=== PATIENT | female | born 1955 | race Asian ===

== ENCOUNTER → 2017-01-11 | Day surgery (SDC) | payer BC ==
[~2017-01-11] MED LIST: ACETAMINOPHEN325 MG PO; LISINOPRIL10 MG PO; MONTELUKAST SOD10 MG PO; ULTRAM PO
--- NOTE | ~2017-01-11 | OR ---
Unit #: [id number] #: [id number] Patient: MARVIN CAMEJO [id number] [address] [place], [place] [address] [id number] O MR#: [id number] NAME: MARVIN CAMEJO ROOM: Date of Procedure: 01/11/2017 Admission Date: 01/11/2017 Surgeon: Hayes Lovett M.D. : 1955 Attending Physician: Hayes Lovett M.D. Primary Care Physician: France Camejo M.D. OPERATIVE REPORT PREOPERATIVE DIAGNOSIS Colorectal cancer screening in an average-risk patient. PROCEDURE PERFORMED Colonoscopy up to cecum and terminal ileum with excellent preparation and good visualization. POSTOPERATIVE DIAGNOSES The patient has mild sigmoid and descending colon diverticulosis. Otherwise, examination was normal up to cecum and terminal ileum. The quality of the prep was excellent. No polyps were present or seen. RECOMMENDATIONS Repeat colonoscopy in 10 years. SEDATION USED MAC. DESCRIPTION OF PROCEDURE Following detailed explanation of the potential risks and complications of a colonoscopy, namely perforation, bleeding, and complication related to sedation, the patient was brought to GI lab and laid in the left lateral decubitus position. A digital rectal examination was performed, which was normal. Lubricated tip of the Olympus video colonoscope was inserted through the anus and advanced under direct vision. The scope was advanced past rectosigmoid into descending colon. Scant small diverticula were seen in this area. The scope tip was then navigated all the way up to cecum with visualization of the ileocecal valve and the appendiceal orifice. Preparation was excellent with good visualization and photodocumentation was obtained. Last several inches of the terminal ileum were also visualized after intubation of the ileocecal valve and appeared normal. Successive segments of the colonic mucosa were examined upon withdrawal and appeared unremarkable, there being no polyps, mass lesions, or AVMs. Other than the scant diverticula, no other abnormalities were found. The patient did not have any hemorrhoids at the anal verge. The scope was then withdrawn and the patient returned to the recovery area. She tolerated the procedure without any postprocedure complications. Dictated by... Hayes Lovett M.D. Unit #: [id number] #: [id number] Patient: CAMEJOMARVIN DAVILA TD: 01/11/2017 12:17 JOB #: [id number] OPERATIVE REPORT X Hayes Lovett MD PROCEDURE OPERATIVE NOTE
== END | disposition home or self-care (01) ==
LOC: COPS 08:56
PROVIDERS: Internal Medicine Gastroenterology
PROC: 0DJD8ZZ Inspection of Lower Intestinal Tract, Via Natural or Artificial Opening Endoscopic (ICD-10-PCS; principal; 2017-01-11 10:00)
DX: Z12.11 Encounter for screening for malignant neoplasm of colon (principal); K57.30 Diverticulosis of large intestine without perforation or abscess without bleeding; I10 Essential (primary) hypertension; M19.90 Unspecified osteoarthritis, unspecified site; Z79.899 Other long term (current) drug therapy

== ENCOUNTER 2017-05-05 18:26 | Observation (INO) | payer OTHER ==
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
--- NOTE | ~2017-05-05 | EKG ---
PATIENT: MARVIN VALDEZ UNIT #: [id number] Ventricular Rate: 63 BPM Atrial Rate: 63 BPM P-R Interval: 148 ms QRS Duration: 78 ms Q-T Interval: 410 ms QTC Calculation(Bezet): 419 ms P Adin: 74 degrees Calculated R Adin: 45 degrees Calculated T Adin: 48 degrees Diagnosis Line: Normal sinus rhythm Diagnosis Line: Possible Left atrial enlargement Diagnosis Line: Left ventricular hypertrophy Diagnosis Line: Abnormal ECG Diagnosis Line: No previous ECGs available Diagnosis Line: Confirmed by RAFA DE LA GARZA MD ([id number]) on Diagnosis Line: 05/07/2017 7:56:53 AM INTERPRETING MD: FREDERIC BURROUGHS
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
--- NOTE | ~2017-05-05 | HM ---
Unit #: [id number] #: [id number] Patient: MARVIN VALDEZ [id number] [address] [place], [place] [address] [id number] I MR#: [id number] NAME: MARVIN VALDEZ : 1955 SEX: F STUDY DATE/TIME: 05/06/2017 UNIT: [facility] ROOM: 463 STUDY DESCRIPTION: Attending Physician: Clarissa Carpenter M.D. Primary Care Physician: France Valdez M.D. CARDIOLOGY REPORT EXAM Holter monitor. DATE APPLIED 05/06/2017 DATE SCANNED 05/10/[address] Hamm READ BY Artie Millard M.D. INDICATION Near syncope. SUMMARY The patient was monitored for 23 hours 51 minutes. A total of 102,119 QRS complexes were analyzed. The rhythm was sinus. Average heart rate was 73 beats per minute, minimum heart rate was 54 beats per minute at 1:09 p.m., and maximum heart rate 122 beats per minute at approximately 7 a.m. There were no pauses. SUPRAVENTRICULAR ECTOPY: There were 141 isolated beats with one 3-beat run at 100 beats per minute at approximately 9:30 p.m. VENTRICULAR ECTOPY: There were 78 isolated beats. No VT. SYMPTOMS: None. PATIENT ACTIVATED EVENTS: None. IMPRESSION Normal Holter monitor with no supraventricular tachycardia, ventricular tachycardia, or pauses to account for syncope. Dictated by... Gen Woodruff/aixa Unit #: [id number] #: [id number] Patient: MARVIN VALDEZ TD: 05/12/2017 20:29 JOB #: [id number] CARDIOLOGY REPORT Page 1 of 1 X Artie Millard MD HOLTER MONITOR REPORT
--- NOTE | ~2017-05-05 | HP ---
Unit #: [id number] #: [id number] Patient: MARVIN CAMEJO [id number] [address] [address] [id number] I MR#: [id number] NAME: MARVIN CAMEJO ROOM: 823[address] Age: 61 Sex: F Admission Date: 05/06/2017 : 1955 Attending Physician: Cassidy Sharma M.D. Primary Care Physician: France Camejo M.D. HISTORY AND PHYSICAL ADDENDUM Patient is non-orthostatic. Dictated by Cassidy Sharma M.D. AML/psc TD: 05/06/2017 01:56 JOB #: [id number] HISTORY AND PHYSICAL Page 1 of 1 X Cassidy Sharma MD HISTORY AND PHYSICAL
[~2017-05-05 18:26] MED LIST changes: -ACETAMINOPHEN325 MG PO; -ULTRAM PO
[2017-05-05 19:57] LABS: BASOPHIL% 0.2 % (0-2.5); EOSINOPHIL# 0.1 X10e3 (0-0.7); EOSINOPHIL% 0.9 % (0.0-7.0); HEMATOCRIT 37.5 % (35.0-45.0); HEMOGLOBIN 12.1 gm/dL (12.0-16.0); LYMPHOCYTE# 1.1 X10e3 (1.0-3.5); LYMPHOCYTE% 6.8 % (17.0-45.0); MEAN CELL VOLUME 86.7 FL (83-96); MEAN CORPUSCULAR HGB CONC 32.3 g/dL (30-36); MEAN PLATELET VOLUME 8.6 FL (6.5-11.5); MONOCYTE# 0.6 X10e3 (0-1.0); MONOCYTE% 3.9 % (3.0-12.0); NEUTROPHIL# 13.8 X10e3 (1.5-7.1); NEUTROPHIL% 88.2 % (40-75); PLATELET COUNT 265 X10e3 (140-420); RED BLOOD COUNT 4.33 X10e (3.90-5.30); RED CELL DISTRIBUTION WIDTH 13.5 % (11.0-15.5); WHITE BLOOD COUNT 15.6 X10e3 (4.0-10.5)
[2017-05-05 19:58] LABS: DIFF IND YES
[2017-05-05 20:05] LABS: INR 0.9; PARTIAL THROMBOPLASTIN TIME 23.1 SECONDS (23.5-31.3); PROTHROMBIN TIME (PATIENT) 10.3 SECONDS (10.0-11.7)
[2017-05-05 20:13] LABS: ALBUMIN SERUM 4.5 g/dL (3.5-5.0); BILIRUBIN, DIRECT 0.1 mg/dL (0.0-0.2); BILIRUBIN,INDIRECT 0.9 mg/dL (0.0-0.9); CREATININE SERUM 0.5 mg/dL (0.6-1.4); GLOM FILT RATE Estimated 105.2 mL/min (>60); POTASSIUM 3.7 mmol/L (3.5-5.1); PROTEIN TOTAL SERUM 8.1 g/dL (6.0-8.3)
[2017-05-05 20:22] LABS: PLATELET ESTIMATE NORMAL (NORMAL)
[2017-05-05 21:21] LABS: POC - CKMB 4.7 ng/mL (0.0-7.9); POC - TROPONIN <0.05 ng/mL (<=0.05)
[2017-05-05 21:50] LABS: POC - CKMB 2.7 ng/mL (0.0-7.9); POC - TROPONIN <0.05 ng/mL (<=0.05)
[2017-05-06 04:48] LABS: URINE SOURCE CLEAN CATCH
[2017-05-06 04:52] LABS: URINE APPEARANCE CLEAR; URINE BILIRUBIN NEG (NEG); URINE BLOOD TRACE (NEG); URINE COLOR YELLOW; URINE GLUCOSE NEG (NEG); URINE KETONE NEG (NEG); URINE LEUKOCYTE ESTERASE TRACE (NEG); URINE NITRATE NEG (NEG); URINE PROTEIN NEG (NEG); URINE SPECIFIC GRAVITY 1.015 (1.003-1.035)
[2017-05-06 04:54] LABS: URINE BACTERIA AUWI NEG (NEGATIVE); URINE SQUAMOUS EPITHELIAL CELL OCC /[HPF]
[2017-05-06 05:53] LABS: BASOPHIL% 0.5 % (0-2.5); EOSINOPHIL# 0.1 X10e3 (0-0.7); EOSINOPHIL% 1.4 % (0.0-7.0); HEMATOCRIT 34.7 % (35.0-45.0); HEMOGLOBIN 11.5 gm/dL (12.0-16.0); LYMPHOCYTE# 2.1 X10e3 (1.0-3.5); LYMPHOCYTE% 21.8 % (17.0-45.0); MEAN CELL VOLUME 85.6 FL (83-96); MEAN CORPUSCULAR HEMOGLOBIN 28.3 PG (28-34); MEAN PLATELET VOLUME 8.2 FL (6.5-11.5); MONOCYTE# 0.6 X10e3 (0-1.0); MONOCYTE% 6.8 % (3.0-12.0); NEUTROPHIL# 6.6 X10e3 (1.5-7.1); NEUTROPHIL% 69.5 % (40-75); PLATELET COUNT 273 X10e3 (140-420); RED BLOOD COUNT 4.05 X10e (3.90-5.30); RED CELL DISTRIBUTION WIDTH 13.4 % (11.0-15.5); WHITE BLOOD COUNT 9.5 X10e3 (4.0-10.5)
[2017-05-06 06:00] LABS: DIFF IND NO
[2017-05-06 06:29] LABS: BUN/CREATININE RATIO 16.66; CALCIUM SERUM 8.8 mg/dL (8.4-10.2); CREATININE SERUM 0.6 mg/dL (0.6-1.4); GLOM FILT RATE Estimated 99.1 mL/min (>60); POTASSIUM 3.4 mmol/L (3.5-5.1)
[2017-05-06 06:43] LABS: %MB 1.4 % (0.0-4.0); MB 3.8 ng/ml
[2017-05-06] MEDS ORDERED: ULTRAM PO (15:11)
[2017-05-06] MEDS ORDERED: ACETAMINOPHEN325 MG PO (15:14)
== END 2017-05-06 17:25 | disposition home or self-care (01) | DRG 312 ==
LOC: CED 18:26 → CEDOF 23:50 → CED 05-06 00:18 → C4C 05-06 00:18 → CEDOF 05-06 03:10 → C4C 05-06 03:10
PROVIDERS: Emergency Medicine
DX: R55 Syncope and collapse (principal); S22.32XA Fracture of one rib, left side, initial encounter for closed fracture; V43.52XA Car driver injured in collision with other type car in traffic accident, initial encounter; J98.11 Atelectasis; K76.89 Other specified diseases of liver; I10 Essential (primary) hypertension; R91.1 Solitary pulmonary nodule
CPT/HCPCS: 36415; 70450; 71010; 71250; 72125; 73080; 74176; 80048; 80076; 81003; 82550; 82553; 84484; 85025; 85610; 85730; 86850; 86900; 86901; 87086; 93005; 93225; 93226; 96360; 99285; G0378

== ENCOUNTER 2017-06-07 00:24 | Emergency (ER) | payer BC ==
[~2017-06-07] VITALS: Ht 50.8 cm; Wt 49.1 kg
--- NOTE | ~2017-06-07 | EKG ---
PATIENT: MARVIN VALDEZ UNIT #: [id number] Ventricular Rate: 58 BPM Atrial Rate: 58 BPM P-R Interval: 168 ms QRS Duration: 88 ms Q-T Interval: 454 ms QTC Calculation(Bezet): 445 ms P [place]: 74 degrees Calculated R [place]: 58 degrees Calculated T [place]: 54 degrees Diagnosis Line: Sinus bradycardia with Premature supraventricular Diagnosis Line: complexes Diagnosis Line: Minimal voltage criteria for LVH, may be normal Diagnosis Line: variant Diagnosis Line: Borderline ECG Diagnosis Line: When compared with ECG of 05-MAY-2017 19:01, Diagnosis Line: Premature supraventricular complexes are now Diagnosis Line: Present Diagnosis Line: Confirmed by JULIET CHUN MD ([id number]) on 06/08/2017 Diagnosis Line: 11:32:28 PM INTERPRETING MD: ADIEL BURROUGHS
--- NOTE | ~2017-06-07 | CR72 ---
[facility] A Service of [facility] & [facility] RADIOLOGY TEXT RESULTS PATIENT: MARVIN CAMEJO LOCATION: [facility] : 57 UNIT #: [id number] AGE: [address]: Enrique Demarco MD SEX: F ORDER DR: [id number] [facility] [address] [place], [place] [address] [id number] MR#: [id number] Acc #: [id number] NAME: MARVIN CAMEJO : 1955 SEX: F STUDY DATE/TIME: 06/07/2017 1:41 UNIT: [facility] ROOM: STUDY DESCRIPTION: CR Chest Single View Portable Attending Physician: Enrique Demarco Ordering Physician: Noah Demarco M.D. Primary Care Physician: France Camejo M.D. MEDICAL IMAGING REPORT This report is preliminary unless electronic signature is present EXAM Chest c-ray, 06/07/2017 HISTORY 61-year-old female in the ED complaining of new onset chest pain and shortness of air tonight. TECHNIQUE AP portable chest x-ray. FINDINGS Heart size and pulmonary vascularity are normal. The lungs are expanded and clear. No visible pulmonary infiltrate or pleural effusion. No change since 05/05/2017. IMPRESSION No active disease. No change since 05/05/2017. Dictated by... Luis Bernabe M.D. THIS IS AN ELECTRONICALLY VERIFIED REPORT Luis Bernabe M.D. at 06/07/2017 6:08 AM Zunilda TD: 06/07/2017 02:32 JOB #: [id number] MEDICAL IMAGING REPORT Page 1 of 1 COPY
[~2017-06-07 00:24] MED LIST changes: +ACETAMINOPHEN325 MG PO; +ULTRAM PO
[2017-06-07 00:41] LABS: URINE SOURCE CLEAN CATCH
[2017-06-07 00:52] LABS: URINE APPEARANCE CLEAR; URINE BILIRUBIN NEG (NEG); URINE BLOOD TRACE (NEG); URINE COLOR YELLOW; URINE GLUCOSE NEG (NEG); URINE KETONE NEG (NEG); URINE LEUKOCYTE ESTERASE NEG (NEG); URINE NITRATE NEG (NEG); URINE PROTEIN NEG (NEG); URINE SPECIFIC GRAVITY 1.004 (1.003-1.035); URINE UROBILINOGEN 0.2 MG/DL (NEG)
[2017-06-07 00:55] LABS: URBCS1 AUWI 0-2 /[HPF] (0-2); URINE BACTERIA AUWI NEG (NEGATIVE); URINE SQUAMOUS EPITHELIAL CELL NONE SEEN /[HPF]; UWBCS1 AUWI 0-2 (0-5)
[2017-06-07 00:58] LABS: CULTURE INDICATED? NO
[2017-06-07 02:39] LABS: BASOPHIL% 0.5 % (0-2.5); EOSINOPHIL# 0.2 X10e3 (0-0.7); EOSINOPHIL% 3.7 % (0.0-7.0); HEMATOCRIT 36.3 % (35.0-45.0); HEMOGLOBIN 12.2 gm/dL (12.0-16.0); LYMPHOCYTE# 1.9 X10e3 (1.0-3.5); LYMPHOCYTE% 27.6 % (17.0-45.0); MEAN CELL VOLUME 84.8 FL (83-96); MEAN CORPUSCULAR HEMOGLOBIN 28.4 PG (28-34); MEAN CORPUSCULAR HGB CONC 33.5 g/dL (30-36); MEAN PLATELET VOLUME 7.8 FL (6.5-11.5); MONOCYTE# 0.5 X10e3 (0-1.0); MONOCYTE% 7.9 % (3.0-12.0); NEUTROPHIL# 4.1 X10e3 (1.5-7.1); NEUTROPHIL% 60.3 % (40-75); PLATELET COUNT 292 X10e3 (140-420); RED BLOOD COUNT 4.28 X10e (3.90-5.30); RED CELL DISTRIBUTION WIDTH 13.3 % (11.0-15.5); WHITE BLOOD COUNT 6.7 X10e3 (4.0-10.5)
[2017-06-07 02:40] LABS: DIFF IND NO
[2017-06-07 03:04] LABS: CALCIUM SERUM 9.2 mg/dL (8.4-10.2); CREATININE SERUM 0.6 mg/dL (0.6-1.4); GLOM FILT RATE Estimated 99.1 mL/min (>60); POTASSIUM 3.6 mmol/L (3.5-5.1)
[2017-06-07 03:31] LABS: POC - CKMB <1.0 ng/mL (0.0-7.9); POC - TROPONIN <0.05 ng/mL (<=0.05)
== END 2017-06-07 04:36 | disposition home or self-care (01) ==
LOC: CED 00:24
PROVIDERS: Emergency Medicine
DX: R07.89 Other chest pain (principal); I10 Essential (primary) hypertension; Z98.890 Other specified postprocedural states
CPT/HCPCS: 36415; 71010; 80048; 81003; 82553; 83880; 84484; 85025; 93005; 99285